=== PATIENT | male | born 1960 | race Caucasian/White ===

== ENCOUNTER 2025-01-29 20:41 | Inpatient (IN) | payer MEDICAID ==
[~2025-01-29] VITALS: Ht 172.7 cm; Wt 68.2 kg
[2025-01-29 21:46] LABS: BASOPHILS % (AUTO) 0.6 % (0.0-2.0); EOSINOPHILS % (AUTO) 1.5 % (1.0-6.0); HEMATOCRIT 46.4 % (41-53); HEMOGLOBIN 15.1 g/dL (13.5-17.5); LYMPHOCYTES # (AUTO) 1.3 K/uL (1.0-4.8); LYMPHOCYTES % (AUTO) 13.9 % (22.0-44.0); MEAN CORPUSCULAR HGB CONC 32.5 G/dL (31.0-37.0); MEAN CORPUSCULAR VOLUME 96 fL (80-100); MONOCYTES # (AUTO) 0.7 K/uL (0.1-1.0); MONOCYTES % (AUTO) 7.3 % (2.0-9.0); NEUTROPHILS # (AUTO) 7.3 K/uL (1.8-7.7); NEUTROPHILS % (AUTO) 76.7 % (40.0-70.0); PLATELET COUNT (AUTO) 337 K/uL (150-450); RED BLOOD CELL COUNT(AUTO) 4.86 MIL/uL (4.50-5.90); RED CELL DISTRIBUTION WIDTH 13.7 % (11.5-14.5); WHITE BLOOD COUNT (AUTO) 9.6 K/uL (4.5-11.0)
[2025-01-29 21:54] LABS: ANION GAP 6 mmol/L (8-16); CALCIUM, TOTAL 9.2 mg/dL (8.8-10.5); CARBON DIOXIDE 33 mmol/L (22-29); CHLORIDE 97 mmol/L (98-107); CREATININE 0.79 mg/dL (0.60-1.30); GLOMERULAR FILTR. RATE CALC > 60 mL/min (>60); GLUCOSE,RANDOM 238 mg/dL (70-110); SODIUM SERUM 136 mmol/L (136-145); UREA NITROGEN, BLOOD 16 mg/dL (7-18)
[2025-01-29 22:00] LABS: BILIRUBIN,DIRECT 0.3 mg/dL (0.00-0.20); BILIRUBIN,TOTAL 0.9 mg/dL (0.1-1.0); TOTAL PROTEIN, SERUM 8.2 g/dL (6.4-8.2)
[2025-01-29 22:33] LABS: TROPONIN I-HIGH SENSITIVITY 9 ng/L (<76)
[2025-01-29 22:42] LABS: B-TYPE NATRIURETIC PEPTIDE 75 pg/mL (0-100)
[2025-01-30] MEDS ORDERED: BISACODYL 10 MG RECTAL RECTAL SUPPOSITORY PR PRN (00:15)
[2025-01-30] MEDS ORDERED: ONDANSETRON HCL 4 MG/2 ML VIAL IVP PRN (00:15)
[2025-01-30] MEDS ORDERED: ZOLPIDEM TARTRATE 5 MG TABLET PO PRN (00:15)
[2025-01-30] MEDS ORDERED: MAGNESIUM HYDROXIDE SUSPENSION 30 ML UDCUP PO PRN (00:15)
[2025-01-30] MEDS ORDERED: ACETAMINOPHEN 325 MG TABLET PO PRN (00:15)
[2025-01-30] MEDS ORDERED: MORPHINE SULFATE 2 MG/ML SYRINGE IVP PRN (00:15)
[2025-01-30] MEDS: LEVOFLOXACIN 500 MG/D5% WATER 100 ML IV SCH (00:35)
[2025-01-30] MEDS: SODIUM CHLORIDE 0.9% 1,000 ML IV ONE (00:35)
[2025-01-30] MEDS: *CLINICAL-LEVOFLOXACIN IVPB DOSING CLINICAL ONE (00:44)
[2025-01-30 03:25] VITALS: BP 133/98; PULSE 84; RESP 20; TEMP 98.1; O2SAT 97
[2025-01-30 06:17] LABS: APPEARANCE,URINE CLEAR (CLEAR); BILIRUBIN,URINE NEGATIVE (NEGATIVE); COLOR,URINE YELLOW (YELLOW); GLUCOSE, URINE (UA) 150-200 mg/dL (NEGATIVE); KETONES,URINE NEGATIVE (NEGATIVE); LEUKOCYTE ESTERASE ,URINE NEGATIVE (NEGATIVE); NITRATE,URINE NEGATIVE (NEGATIVE); OCCULT BLOOD,URINE NEGATIVE (NEGATIVE); PROTEIN,URINE TRACE mg/dL (NEGATIVE); SPECIFIC GRAVITIY, URINE 1.027 (1.003-1.030)
[2025-01-30 06:25] LABS: ALCOHOL, URINE DRUG SCREEN NEGATIVE (NEGATIVE); AMPHET/METH SCREEN,URINE NEGATIVE (NEGATIVE); BARBITURATE SCREEN, URINE NEGATIVE (NEGATIVE); BENZODIAZEPINES SCREEN,URINE NEGATIVE (NEGATIVE); CANNABINOID SCREEN,URINE NEGATIVE (NEGATIVE); COCAINE SCREEN,URINE NEGATIVE (NEGATIVE); METHADONE SCREEN, URINE NEGATIVE (NEGATIVE); OPIATE SCREEN,URINE POSITIVE (NEGATIVE); PHENCYCLIDINE SCREEN,URINE NEGATIVE (NEGATIVE)
[2025-01-30 07:02] LABS: BACTERIA,URINE None Seen /HPF (None Seen); RBC,URINE None Seen /HPF (0-2); SQUAMOUS EPITHELIAL CELL,UR Few /LPF (None Seen); WBC,URINE None Seen /HPF (0-5)
[2025-01-30 08:03] VITALS: BP 130/90; PULSE 80; RESP 18; TEMP 98; O2SAT 96
[2025-01-30] MEDS: DOCUSATE SODIUM 100 MG CAPSULE PO SCH (08:50)
[2025-01-30] MEDS: PANTOPRAZOLE SODIUM 40 MG DR TABLET PO SCH (08:50)
[2025-01-30] MEDS: HEPARIN SODIUM,PORCINE 5,000 UNITS/ML VIAL SQ SCH (08:51)
[2025-01-30 11:21] VITALS: BP 133/82; PULSE 76; RESP 17; TEMP 98.2; O2SAT 98
[2025-01-30 15:54] VITALS: BP 140/90; PULSE 70; RESP 18; TEMP 98; O2SAT 97
[2025-01-30 20:15] VITALS: BP 133/74; PULSE 73; RESP 17; TEMP 98.6; O2SAT 98
[2025-01-30] MEDS ORDERED: SODIUM CHLORIDE 0.9% 250 ML IV ONE (23:53)
[2025-01-31] VITALS: BP 158/92; PULSE 81; RESP 17; TEMP 97.5; O2SAT 99
[2025-01-31 03:44] VITALS: BP 143/93; PULSE 74; RESP 19; TEMP 98.1; O2SAT 98
[2025-01-31 07:51] LABS: BASOPHILS % (AUTO) 1.2 % (0.0-2.0); EOSINOPHILS % (AUTO) 1.9 % (1.0-6.0); HEMATOCRIT 39.9 % (41-53); HEMOGLOBIN 13.2 g/dL (13.5-17.5); LYMPHOCYTES # (AUTO) 1.8 K/uL (1.0-4.8); LYMPHOCYTES % (AUTO) 29.4 % (22.0-44.0); MEAN CORPUSCULAR HEMOGLOBIN 31.4 pg (26.0-34.0); MEAN CORPUSCULAR HGB CONC 33.1 G/dL (31.0-37.0); MEAN CORPUSCULAR VOLUME 95 fL (80-100); MONOCYTES # (AUTO) 0.6 K/uL (0.1-1.0); MONOCYTES % (AUTO) 10.1 % (2.0-9.0); NEUTROPHILS # (AUTO) 3.5 K/uL (1.8-7.7); NEUTROPHILS % (AUTO) 57.4 % (40.0-70.0); PLATELET COUNT (AUTO) 330 K/uL (150-450); RED CELL DISTRIBUTION WIDTH 13.4 % (11.5-14.5); WHITE BLOOD COUNT (AUTO) 6.1 K/uL (4.5-11.0)
[2025-01-31 08:01] LABS: ANION GAP 7 mmol/L (8-16); CALCIUM, TOTAL 8.7 mg/dL (8.8-10.5); CARBON DIOXIDE 28 mmol/L (22-29); CHLORIDE 102 mmol/L (98-107); CREATININE 0.73 mg/dL (0.60-1.30); GLOMERULAR FILTR. RATE CALC > 60 mL/min (>60); GLUCOSE,RANDOM 109 mg/dL (70-110); POTASSIUM 3.9 mmol/L (3.5-5.1); SODIUM SERUM 137 mmol/L (136-145); UREA NITROGEN, BLOOD 14 mg/dL (7-18)
[2025-01-31 08:35] VITALS: BP 132/89; PULSE 79; RESP 17; TEMP 98.2; O2SAT 100
[2025-01-31 09:39] LABS: RBC MORPHOLOGY COMMENT ABNORMAL R
[2025-01-31 12:59] VITALS: BP 140/96; PULSE 80; RESP 17; TEMP 97.5; O2SAT 98
[2025-01-31 15:35] VITALS: BP 141/91; PULSE 80; RESP 20; TEMP 98.1; O2SAT 100
[2025-01-31 20:07] VITALS: BP 135/85; PULSE 97; RESP 18; TEMP 98.8; O2SAT 97
[2025-01-31] MEDS ORDERED: SODIUM CHLORIDE 0.9% 500 ML IV ONE (23:24)
[2025-01-31] MEDS: LEVOFLOXACIN 750 MG/D5% WATER 150 ML IV SCH (23:25)
[2025-02-01 05:00] VITALS: BP 143/85; PULSE 76; RESP 19; TEMP 97.9; O2SAT 97
[2025-02-01 06:41] LABS: BASOPHILS % (AUTO) 1.3 % (0.0-2.0); EOSINOPHILS % (AUTO) 2.6 % (1.0-6.0); HEMATOCRIT 42.3 % (41-53); HEMOGLOBIN 14.2 g/dL (13.5-17.5); LYMPHOCYTES # (AUTO) 1.6 K/uL (1.0-4.8); MEAN CORPUSCULAR HEMOGLOBIN 31.6 pg (26.0-34.0); MEAN CORPUSCULAR HGB CONC 33.6 G/dL (31.0-37.0); MEAN CORPUSCULAR VOLUME 94 fL (80-100); MONOCYTES # (AUTO) 0.6 K/uL (0.1-1.0); NEUTROPHILS # (AUTO) 3.5 K/uL (1.8-7.7); NEUTROPHILS % (AUTO) 59.1 % (40.0-70.0); PLATELET COUNT (AUTO) 327 K/uL (150-450); RED BLOOD CELL COUNT(AUTO) 4.49 MIL/uL (4.50-5.90); RED CELL DISTRIBUTION WIDTH 13.6 % (11.5-14.5); WHITE BLOOD COUNT (AUTO) 5.9 K/uL (4.5-11.0)
[2025-02-01 06:54] LABS: ANION GAP 4 mmol/L (8-16); CALCIUM, TOTAL 9.1 mg/dL (8.8-10.5); CARBON DIOXIDE 30 mmol/L (22-29); CHLORIDE 100 mmol/L (98-107); CREATININE 0.74 mg/dL (0.60-1.30); GLOMERULAR FILTR. RATE CALC > 60 mL/min (>60); GLUCOSE,RANDOM 130 mg/dL (70-110); POTASSIUM 4.1 mmol/L (3.5-5.1); SODIUM SERUM 134 mmol/L (136-145); UREA NITROGEN, BLOOD 16 mg/dL (7-18)
[2025-02-01 08:37] VITALS: BP 128/79; PULSE 65; RESP 18; TEMP 98.2; O2SAT 100
[2025-02-01] MEDS: HYDROCODONE/ACETAMINOPHEN 5-325 MG TABLET PO PRN (10:14)
[2025-02-01 15:41] VITALS: BP 105/63; PULSE 78; RESP 18; TEMP 99.1; O2SAT 98
[2025-02-01 19:52] VITALS: BP 145/94; PULSE 85; RESP 18; TEMP 98.1; O2SAT 98
[2025-02-02 04:32] VITALS: BP 132/96; PULSE 72; RESP 18; TEMP 98.1; O2SAT 96
[2025-02-02 07:00] VITALS: BP 107/71; PULSE 66; RESP 19; TEMP 98.1; O2SAT 99
[2025-02-02 07:10] LABS: EOSINOPHILS % (AUTO) 2.7 % (1.0-6.0); HEMATOCRIT 41.1 % (41-53); HEMOGLOBIN 13.7 g/dL (13.5-17.5); LYMPHOCYTES # (AUTO) 1.8 K/uL (1.0-4.8); LYMPHOCYTES % (AUTO) 28.4 % (22.0-44.0); MEAN CORPUSCULAR HEMOGLOBIN 31.3 pg (26.0-34.0); MEAN CORPUSCULAR HGB CONC 33.4 G/dL (31.0-37.0); MEAN CORPUSCULAR VOLUME 94 fL (80-100); MONOCYTES # (AUTO) 0.5 K/uL (0.1-1.0); MONOCYTES % (AUTO) 7.6 % (2.0-9.0); NEUTROPHILS # (AUTO) 3.9 K/uL (1.8-7.7); NEUTROPHILS % (AUTO) 60.3 % (40.0-70.0); PLATELET COUNT (AUTO) 316 K/uL (150-450); RED BLOOD CELL COUNT(AUTO) 4.38 MIL/uL (4.50-5.90); RED CELL DISTRIBUTION WIDTH 13.3 % (11.5-14.5); WHITE BLOOD COUNT (AUTO) 6.5 K/uL (4.5-11.0)
[2025-02-02 07:41] LABS: ANION GAP 8 mmol/L (8-16); CARBON DIOXIDE 28 mmol/L (22-29); CHLORIDE 100 mmol/L (98-107); CREATININE 0.71 mg/dL (0.60-1.30); GLOMERULAR FILTR. RATE CALC > 60 mL/min (>60); GLUCOSE,RANDOM 95 mg/dL (70-110); POTASSIUM 4.2 mmol/L (3.5-5.1); SODIUM SERUM 136 mmol/L (136-145); UREA NITROGEN, BLOOD 18 mg/dL (7-18)
[2025-02-02 07:42] LABS: CALCIUM, TOTAL 8.9 mg/dL (8.8-10.5)
[2025-02-02 15:23] VITALS: BP 117/75; PULSE 69; RESP 19; TEMP 98; O2SAT 99
[2025-02-02 19:28] VITALS: BP 114/75; PULSE 71; RESP 20; TEMP 98.4; O2SAT 100
[2025-02-03 04:22] VITALS: BP 133/93; PULSE 71; RESP 18; TEMP 98.6; O2SAT 99
[2025-02-03 08:37] VITALS: BP 128/84; PULSE 65; RESP 18; TEMP 98.2; O2SAT 98
[2025-02-03 16:38] VITALS: BP 119/83; PULSE 98; RESP 18; TEMP 99; O2SAT 97
[2025-02-03 19:45] VITALS: BP 137/85; PULSE 110; RESP 18; TEMP 98.9; O2SAT 97
[2025-02-03 20:58] VITALS: PULSE 95
[2025-02-04] MEDS ORDERED: LEVOFLOXACIN 750 MG TABLET PO SCH
[2025-02-04 03:19] VITALS: BP 128/85; PULSE 75; RESP 19; TEMP 98.1; O2SAT 97
[2025-02-04 09:05] VITALS: BP 141/100; PULSE 79; RESP 18; TEMP 97.7; O2SAT 96
[2025-02-04 16:00] VITALS: BP 150/96; PULSE 86; RESP 18; TEMP 98.1; O2SAT 98
[2025-02-04 19:38] VITALS: BP 138/89; PULSE 83; RESP 18; TEMP 97.7; O2SAT 98
[2025-02-05 05:01] VITALS: BP 136/87; PULSE 68; RESP 18; TEMP 98.1; O2SAT 96
[2025-02-05] MEDS: LEVOFLOXACIN 750 MG TABLET PO SCH (06:07)
== END 2025-02-05 08:09 | disposition home or self-care (01) | DRG 812 ==
LOC: EMS 20:41 → EDH 01-30 00:27 → 5S 01-30 03:02 → 6S 01-31 14:53
PROVIDERS: ADMIT Internal Medicine; ATTEND Internal Medicine
PROC: GZ56ZZZ Individual Psychotherapy, Supportive (ICD-10-PCS; principal; 2025-02-01)
PROC: GZ58ZZZ Individual Psychotherapy, Cognitive-Behavioral (ICD-10-PCS; 2025-02-01)
DX: T40.411A Poisoning by fentanyl or fentanyl analogs, accidental (unintentional), initial encounter (principal); G92.8 Other toxic encephalopathy; F33.1 Major depressive disorder, recurrent, moderate; F11.90 Opioid use, unspecified, uncomplicated; I10 Essential (primary) hypertension; N39.0 Urinary tract infection, site not specified; R73.9 Hyperglycemia, unspecified; M41.9 Scoliosis, unspecified; M54.9 Dorsalgia, unspecified; M47.896 Other spondylosis, lumbar region; Z79.899 Other long term (current) drug therapy
CPT/HCPCS: 70450; 71045; 72100; 80048; 80076; 80307; 81001; 82140; 83880; 84484; 85025; 93005; 96360; 97116; 97162; 97530; 99285; G0378; J1644; J1956; J7030; J7040; J7050; 36415-L1; 36415-TC